=== PATIENT | female | born 1990 ===

== ENCOUNTER 2017-08-25 10:01 | Outpatient (CLI) | payer BC | END 2017-08-25 10:21 | disposition home or self-care (01) | LOC: LAB 10:01 | DX: N39.0 Urinary tract infection, site not specified (principal) ==

== ENCOUNTER → 2017-08-25 | Outpatient (CLI) | payer BC ==
[~2017-08-25] MED LIST: AMBIEN10 MG PO; ANTICONCEPTIVOS
== END | disposition home or self-care (01) ==
LOC: PPHC 08:53 → EDBD 08:53
DX: N39.0 Urinary tract infection, site not specified (principal)